=== PATIENT | male | born 1995 | race Hispanic/Latino ===

== ENCOUNTER 2024-02-24 12:15 | Emergency (ER) | payer SELFPAY ==
[2024-02-24 12:15] VITALS: BP 146/80; PULSE 81; RESP 18; TEMP 36.3; O2SAT 100
[2024-02-24] MEDS: 0.9% Normal Saline (1000mL) 1,000 ML 999 ML IV (14:13)
[2024-02-24] MEDS: DiphenhydrAMINE 50 MG/ML Syringe 25 MG IV (14:13)
[2024-02-24] MEDS: Ketorolac 15 MG/ML Vial IV (14:14)
[2024-02-24] MEDS: Metoclopramide 10 MG/2 ML Vial IV (14:14)
--- NOTE | 2024-02-24 14:23 | EDS_ITS ---
HPI History of Present Illness Chief Complaint: Headache Detail of Chief Complaint: Persistent unilateral headache for 24 hours Informant: patient Onset/Context/Timing Onset: Yesterday Context: Gradual Timing: Continuous and Waxes and wanes Quality -Headache: Positive for Dull and Throbbing Location: Left side Current Severity: Moderate Maximum Severity: Severe Worsened by: Nothing specific Relieved by: Nothing Associated Symptoms/Injury Associated Symptoms: Positive for Sore Throat and Sinus Pressure; Negative for Fever, Nausea, Vomiting, Numbness, Tingling, Preceding Aura, Visual Changes, Blurred Vision, Photophobia or Visual Loss Injury - HERNANDEZ: Negative for Direct Trauma Narrative Narrative: Patient is a 28-year-old male. He is on no medication. He has no known formal diagnosis of migraine headache. He states he has had headaches for 5 years. The reason he presents today is because this has lasted longer than prior headaches. It is no worse in severity. There is no photophobia, sonophobia or change in vision. He denies double vision. He denies ringing in his ears. He does endorse mild nasal congestion and sore throat. He denies fever, chills night sweats. He denies neck pain or neck stiffness. He denies rash. He denies cardiac or respiratory symptoms. He denies GI or symptoms. He denies myalgias or arthralgias. He denies rash. He denies problems with balance or coordination. He denies numbness or tingling his upper or lower extremities. He denies weakness in his upper or lower extremities. Prior similar symptoms: Yes Recent Illness/Hospitalization: No PFSH PFSH Medical History no medical history no medical history Allergy/AdvReac Type Severity Reaction Status Date / Time No Known Allergies Allergy Verified 02/24/24 12:16 Surgical History no surgical history no surgical history Social History (Updated 02/24/24 @ 14:[address] Jomar Strong MD) household members: family Smoking Status: Current every day smoker tobacco type: cigarettes substance use type: does not use ROS ROS ED Constitutional Constitutional ED: Denies chills, fever(s), subjective, sweats or weight loss Eyes Eyes: Denies blurry vision, change in vision or diplopia ENT ENT ED: Denies ear pain, rhinorrhea or sore throat Cardiovascular Cardiovascular: Denies chest pain, orthopnea, palpitations or racing heartbeat Respiratory/Chest Respiratory/Chest: Denies cough, dyspnea, dyspnea on exertion or orthopnea Gastrointestinal Gastrointestinal: Denies abdominal pain, constipation, diarrhea, melena, nausea or vomiting Genitourinary Genitourinary ED: Denies dysuria, hematuria or urinary frequency Musculoskeletal Musculoskeletal: Denies arthralgias, back pain, myalgias or neck pain Integumentary Denies abscess or rash Neurologic Neurologic: Reports headache(s); Denies paresthesias or weakness Endocrine Endocrinology: Denies polydipsia, polyphagia or polyuria EXAM Physical Exam Const Vital Signs: 02/24/24 12:15 Temperature 97.3 F L Temperature Source Temporal Pulse Rate 81 Respiratory Rate 18 Blood Pressure 146/80 H Blood Pressure Mean 102 Pulse Ox 100 Oxygen Delivery Method Room Air Positive well nourished and well developed General Appearance ED: well developed and NAD; Negative for cyanotic, diaphoretic or pallor HEENT Reports normocephalic, TM's clear and moist mucous membranes HEENT Narrative: Posterior pharynx is normal. Patient reports tenderness with percussion over the frontal maxillary sinus. There is no decrease transilluminated light through the maxillary sinus on the left. TMs normal. External auditory canal normal. atraumatic Tympanic Membrane ED: Yes TM's clear Eyes PERRL and EOMs intact bilaterally Eyes Narrative: There is no photophobia. There is no papilledema. General Eye ED: Negative for pale conjunctiva or scleral icterus Neck no lymphadenopathy, supple, no meningeal signs and no JVD Resp normal respiratory effort and clear to auscultation bilaterally Cardio regular rate, regular rhythm, S1 normal heart sound, S2 normal heart sound and no murmurs GI non-tender and non-distended Auscultation: normoactive bowel sounds Palpation: soft Back/Spine no CVA tenderness Extremity normal to inspection, full ROM and normal capillary refill Neuro oriented x3, CN's II-XII intact bilaterally and no sensory deficits noted Kimber Coma Scale: document GCS findings Spontaneous Obeys Commands Oriented 15 Sensorium / Orientation: awake and alert Coordination / Balance: [id number] test normal Speech: speech normal Gait (Neuro): normal gait Motor Exam: strength 5/5 throughout Psych mental status grossly normal Skin General Skin Exam: elasticity normal and turgor normal; Negative for jaundice or pallor Lesions: no lesions Rashes: no rashes MDM MDM MDM Narrative Medical decision making narrative: Patient with unilateral headache. This may represent an atypical migraine headache. This could represent a sinus headache. Since symptoms only present 24 hours he does not have sinusitis. This could be due to a viral illness. Patient was treated with IV ketorolac, Reglan and Benadryl for his headache. Will reassess in 30 to 60 minutes. Treatment and Re-Evaluation Narrative: Patient was reassessed at 1520. Patient Dr. Olivraez to thumbs up when asked hip his headache is resolved. Plan is to discharge to home. 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
[2024-02-24 15:36] VITALS: BP 148/78; PULSE 78; RESP 16; TEMP 36.6; O2SAT 99
== END 2024-02-24 15:37 | disposition home or self-care (01) ==
PROVIDERS: Emergency Provider Emergency Medicine; Visit Provider Emergency Medicine
DX: G43.C0 Periodic headache syndromes in child or adult, not intractable (principal); J02.9 Acute pharyngitis, unspecified; F17.210 Nicotine dependence, cigarettes, uncomplicated
CPT/HCPCS: 96361; 96374; 96375; 99282; J7030; A4216